=== PATIENT | female | born 1940 | race Caucasian/White ===

== ENCOUNTER 2017-03-03 11:24 | Day surgery (SDC) | payer OTHER, MEDICARE ==
[2017-03-02 12:30] VITALS: BMI 30.9
[2017-03-03] MEDS ORDERED: ePHEDrine SULFATE 50 MG/1 ML AMPULE ONE (13:15)
[2017-03-03] MEDS ORDERED: PROPOFOL 20 ML ONE ×4 (13:15→13:57)
[2017-03-03] MEDS ORDERED: MIDAZOLAM HCL 2 MG/2 ML SINGLE DOSE VIAL ONE (13:16)
[2017-03-03] MEDS ORDERED: SUCCINYLCHOLINE CHLORIDE 200 MG/10 ML VIAL ONE (13:17)
[2017-03-03] MEDS ORDERED: LIDOCAINE HCL 2% (50ML VIAL) NR ONE (13:57)
[2017-03-03] MEDS ORDERED: LACTATED RINGERS SOLUTION 1,000 ML IV SCH (14:45)
[2017-03-03] MEDS ORDERED: ONDANSETRON 4 MG/2 ML VIAL IVPUSH PRN (14:45)
[2017-03-03] MEDS ORDERED: oxyCODONE HCL 5 MG TABLET PO PRN (14:45)
--- NOTE | 2017-03-03 15:16 | OP ---
DATE OF OPERATION: DATE OF DICTATION: 03/03/2017 PREOPERATIVE DIAGNOSES: 1. Rule out osteomyelitis, left tibia. 2. Rule out vasculitis, skin of left lower leg. POSTOPERATIVE DIAGNOSES: 1. Rule out osteomyelitis, left tibia. 2. Rule out vasculitis, skin of left lower leg. PROCEDURES DONE: 1. Bone biopsy, cortex. 2. Bone aspirate for culture. 3. Skin biopsy. SURGEON: Dada Mclaughlin MD ANESTHESIOLOGIST: TYPE OF ANESTHESIA: LMA and 2% plain lidocaine supplementation on the wound. HISTORY: The patient is a 77-year-old female with past history of fractured left tibia and fibula, operated on and had hardware, post-surgery hardware infection which was removed 1 month later. Since then, the wound was well and healed. A year ago it started to break down. Patient started to develop swelling on the left lower leg. Since then the wound has not healed. MRI revealed changes, but nonspecific, in the bone. Patient is here for bone biopsy as well as aspirate to rule out osteomyelitis. DESCRIPTION OF PROCEDURE: The patient was brought to the operating room. She was placed in a supine position. Patient was identified. Timeout was called out, including the site of the procedure. Left leg was washed and cleaned with Betadine soap and solution and then draped in a standard manner. Over a 2.5-cm open wound is located right over the distal end of fibula. An incision was made in intact skin with a 15 scalpel blade. Periosteum was elevated with a periosteal elevator. At this time a trocar and cannula were used to penetrate through the cortex. The cortex was taken for bone biopsy. The needle was then placed in. Direct pressure was applied. A few small portions of the medulla were taken and sent for culture in a fresh specimen with saline. Similar attempt was made at the caudal end of the bone at 6 o'clock position. Cortex was taken for biopsy, sent with the same cortex with the previous one. Further deeper culture was then taken with a trocar, and the bone aspirate was sent for culture. A separate tissue was used on the skin on the dorsum of the left foot, ankle, to rule out vasculitis. All the areas were then dressed with Bacitracin. Xeroform, 4 x 4's, and a Coban were applied. The patient tolerated the procedure well. After the deep bone was taken for cultures, she was given 900 mg of clindamycin. She was sent to recovery room in a stable condition. All the instrument count was correct. DADA MCLAUGHLIN M.D. LUIS [id number]
[2017-03-03 15:22] VITALS: TEMP 97.8
--- NOTE | 2017-03-03 15:48 | HP ---
DATE OF ADMISSION: 03/03/2017 HISTORY: Nonhealing open wound, left lower extremity, lateral ankle and medial ankle for the last 1 year. Past history is relevant for this 77-year-old female, 8 years ago, she had fractured her left ankle and lower leg. She had undergone hardware placement. Post surgery, infection occurred the hardware had to be removed within a month. No other treatments were done. Patient healed uneventfully after that. Recently, she again twisted her ankle, also developed swelling of the left lower extremity. Since then, the scars which were present from the previous surgery started to dehisce. Both medial and lateral wounds dehisced completely. She was seen and treated by Dr. Adalgisa Estrella for just about a year with nonhealing. She was then referred to the wound clinic at [facility]. At this time, debridements and various wound products were used successfully for the medial ankle. The lateral one responded by decreasing in size but did not heal completely. At this time, an MRI was done which showed radiolucency with possibility of osteomyelitis. Patient is now brought to [facility] for bone biopsy. PAST HISTORY: Relevant for no alcohol abuse. She drinks only socially. Smoking: Never smoked. ALLERGIES: PENICILLIN; she develops a rash. Generally, she is in good health. PHYSICAL EXAMINATION: General: Clinically, she is a very pleasant 77-year-old, slightly heavy for her height. HEENT: Her pupils are equal and reacting. Chest: Good air entry. Abdomen: Soft and nontender. Extremities: On the lower leg, it shows a lot of fibrosis in the lower third of the leg, skin irritation, significant abrasions, open wound on the lateral aspect which measures over 2 cm x 1.5 cm, extends down to the periosteum, with significant swelling and redness in the periphery, especially at the 6 o'clock position. The medial wound has now again started to open. It had healed. Due to the swelling, the scar is again breaking down, covered by fibrinous tissue. Pulses are present. Skin has a lot of excoriation gomez on it. DIAGNOSIS: A nonhealing, chronic open wound, left lower leg, status post fracture, for rule out osteomyelitis. MEDICATIONS: She is taking at home are ibuprofen and Percocet as needed. DADA MCLAUGHLIN M.D. CHERIE/[id number]
[2017-03-03 16:27] VITALS: BP 140/56; PULSE 84
--- NOTE | 2017-03-08 15:56 | PATH ---
Surgical Pathology Report Patient Name: NAPOLEON SCOTT [facility]. Rec. #: [id number] /Age/Gender: 1940 (Age: 77) / F Account: [id number] Location: [facility] SURGICAL Taken: 03/03/2017 Received: 03/03/2017 Reported: 03/08/2017 Physicians: Michael Mckeon M.D. Specimen(s) Received A: LEFT LOWER LEG BONE BIOPSY B: BONE CORTEX C: SKIN BIOPSY Clinical History Rule out osteomyelitis Compound fracture left ankle/lower leg x8 years ago Post-surgery infection/hardware removed. Developed wound x1 year ago, now healing Final Diagnosis A. BONE, LEFT LOWER LEG, BIOPSY: FRAGMENTS OF PARTIALLY NECROTIC BONE (SEE COMMENT). B. BONE CORTEX, LEFT LOWER LEG, BIOPSY: FRAGMENTS OF FOCALLY NECROTIC BONE WITH EVIDENCE OF CHRONIC OSTEOMYELITIS (SEE COMMENT). FRAGMENTS OF INFLAMED GRANULATION TISSUE, NECROINFLAMMATORY AND FIBRINOHEMORRHAGIC DEBRIS. Comment: Correlations with microbiology studies are suggested. C. SKIN, BOTELLO, BIOPSY: SKIN WITH EVIDENCE OF NEUTROPHILIC VASCULITIS (SEE COMMENT). Comment: Scattered neutrophils are present within the mcmahon of small superficial dermal vessels. Focal small fibrin thrombi and extravasated red blood cells are also focally seen. Few eosinophils are seen in the dermis. Chronic ischemic changes are also noted. 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 Clinical correlations are suggested. Electronically Signed Roland Rodriguez M.D. Gross Description A. Received fresh labeled "bone biopsy left lower leg" is a 0.5 x 0.3 x 0.1 cm aggregate of mckay-red bone fragments. A business representative portion is submitted to microbiology for culture. The remainder of the specimen is entirely submitted in one cassette. B. Received in formalin labeled "left lower leg bone (cortex) biopsy" is a 0.9 x 0.7 x 0.2 cm aggregate of mckay bone fragments. The formalin is filtered and the specimen is entirely submitted in one cassette. C. Received in formalin labeled "skin biopsy left lower leg" is a 0.4 x 0.3 cm mckay, ovoid skin punch biopsy excised to depth of 0.4 cm. No discrete epidermal lesion is identified. The specimen is submitted in toto in one cassette. 03/03/2017 saudi03/03/2017
== END 2017-03-03 16:46 | disposition home or self-care (01) ==
LOC: JASU-SURG 11:24 → JASUSAT 11:24 → JASU-SURG 16:46
PROVIDERS: ATTEND Plastic Surgery
PROC: 0QBH3ZX Excision of Left Tibia, Percutaneous Approach, Diagnostic (ICD-10-PCS; 2017-03-03)
PROC: 0HBNXZX Excision of Left Foot Skin, External Approach, Diagnostic (ICD-10-PCS; principal; 2017-03-03 13:00)
DX: M86.662 Other chronic osteomyelitis, left tibia and fibula (principal); L95.8 Other vasculitis limited to the skin
CPT/HCPCS: 87070; 87075; 87184; 87186; 87205; 88304-TC; 88305-TC; 88307-TC; 88311-TC; 88331-TC; 94760